=== PATIENT | female | born 1960 | race Caucasian/White ===

== ENCOUNTER 2020-04-20 14:58 | Emergency (ER) | payer MEDICAID ==
[~2020-04-20] VITALS: Ht 149.9 cm; Wt 120.7 kg
[2020-04-20 15:00] VITALS: BP 186/99
--- NOTE | 2020-04-20 15:06 | NUR ---
COST ANALYST: EKG DONE IN TRIAGE
[2020-04-20 17:00] LABS: BASOPHILS % (AUTO) 1 % (0-1); EOSINOPHILS % (AUTO) 1 % (1-7); LYMPHOCYTES % (AUTO) 16 % (22-44); MEAN CORPUSCULAR HGB CONC 34.2 g/dL (32.4-35.8); MONOCYTES % (AUTO) 11 % (2-9); NEUTROPHILS % (AUTO) 72 % (42-75); PLATELET COUNT 208 x10^3/uL (130-400); RED BLOOD COUNT 4.67 x10^6/uL (3.82-5.3); RED CELL DISTRIBUTION WIDTH 14.3 % (9.6-15.2)
[2020-04-20 17:01] LABS: MD NO
[2020-04-20 17:09] LABS: ALANINE AMINOTRANSFERASE 25 U/L (12-78); ALBUMIN 3.6 g/dL (3.4-5.0); CALCIUM 9.1 mg/dL (8.5-10.1); CHLORIDE 109 mmol/L (98-107); CREATININE 0.98 mg/dL (0.55-1.02)
[2020-04-20 17:16] LABS: ALKALINE PHOSPHATASE 80 U/L (45-117); ANION GAP 5 mmol/L (5-15); BILIRUBIN,TOTAL 0.9 mg/dL (0.2-1.0); C-REACTIVE PROTEIN, QUANT 3.33 mg/dL (0.02-0.49); TOTAL PROTEIN 8.4 g/dL (6.4-8.2)
[2020-04-20] MEDS ORDERED: OMNIPAQUE 350 MG/ML, 100ML BOTTLE ONE (17:54)
[2020-04-20] MEDS ORDERED: CEFAZOLIN 1,000 MG IM ONE (18:30)
[2020-04-20] MEDS ORDERED: CEFAZOLIN 1,000 MG ONE (18:36)
== END 2020-04-20 19:30 | disposition home or self-care (01) ==
LOC: ED 18:16
DX: K04.7 Periapical abscess without sinus (principal); R50.9 Fever, unspecified; R06.00 Dyspnea, unspecified; R06.02 Shortness of breath; R51.9 Headache, unspecified; R05 Cough
CPT/HCPCS: 36415; 70491; 71045; 80053; 82728; 83605; 83615; 84145; 85025; 86140; 86308; 87040; 87081; 87635; 87880; 93005; 96372; 99285; J0690; Q9967